=== PATIENT | female | born 1965 | race Caucasian/White ===

== ENCOUNTER → 2016-12-28 | Outpatient (CLI) | payer MEDICARE, OTHER ==
--- NOTE | 2016-12-28 16:06 | XR ---
EXAMINATION TYPE: XR KUB DATE OF EXAM ORDERED: 12/28/2016 2:19 PM HISTORY: Left-sided nephrolithiasis. COMPARISON: None. FINDINGS: There has been a previous cholecystectomy. The abdominal gas pattern is normal. No definit e renal calculi are seen. There are multiple phleboliths within the pelvis. IMPRESSION: NO ACUTE INTRA-ABDOMINAL ABNORMALITY.
== END | disposition home or self-care (01) ==
LOC: RADXRMAIN 14:06
PROVIDERS: ATTEND Urology
DX: N20.0 Calculus of kidney (principal)
CPT/HCPCS: 74000

== ENCOUNTER 2017-04-09 16:56 | Observation (INO) | payer MEDICARE, OTHER ==
--- NOTE | 2017-04-09 17:27 | ED ---
General Adult HPI - General Chief complaint: Urogenital Stated complaint: Poss Kidney Stone Source: patient, EMS, RN notes reviewed, old records reviewed Mode of arrival: EMS Limitations: no limitations - History of Present Illness Initial comments: Chief complaint and history of present illness a 52-year-old female sent in our emergency room from [facility] emergency room. The patient had lithotripsy and dilatation yesterday by Dr. Hu. Today she went to the emergency room at [facility] because of increased pain. While there urinalysis showed greater than 100 RBCs 1 WBC. The patient's labs SHOW white count 21.3 with a hemoglobin 14 hematocrit of 45 and 80% neutrophils. CT performed at that facility was interpreted by the radiologist as compared to one prior and his interpretation is there is swelling and possible subcapsular hematoma as well as peripheral stranding. His impression is possible pyelonephritis. The patient was given IV Levaquin at [facility]. - Related Data Home Medications Medication Instructions Recorded Confirmed HYDROcodone/APAP 7.5-325MG [[place] [address] 1 tab PO BID PRN 04/09/17 04/09/17 7.5-325] Ranitidine HCl [Zantac] 150 mg PO BID 04/09/17 04/09/17 Sertraline HCl [Zoloft] 150 mg PO HS 04/09/17 04/09/17 clonazePAM [KlonoPIN] 0.5 mg PO HS 04/09/17 04/09/17 traZODone HCL [Trazodone HCl] 150 mg PO HS 04/09/17 04/09/17 Allergies Allergy/AdvReac Type Severity Reaction Status Date / Time ciprofloxacin [From Cipro] Allergy Swelling Verified 04/09/17 17:33 cortisone Allergy Swelling Verified 04/09/17 17:33 ketorolac [From Toradol] Allergy Rash/Hives Verified 04/09/17 17:33 Review of Systems ROS Statement: Those systems with pertinent positive or pertinent negative responses have been documented in the HPI. Review of systems patient denies headache or visual acuity changes she has left flank pain radiates around to the right. Some nausea vomiting earlier and she is given medications to stop. Decreased appetite. No peripheral neurological problems. No chest pain or shortness of breath. All systems reviewed past medical problems significant for multiple kidney stones since last April. Surgeries bilateral carpal tunnel repair. Cholecystectomy tonsillectomy. Family history father had CHF. Patient has ALLERGIES to Toradol and Cipro. She reports Cipro cause tendon rupture. Patient does smoke strongly encouraged to stop, denies alcohol use ROS Other: All systems not noted in ROS Statement are negative. Past Medical History Additional Past Medical History / Comment(s): colitis, kidney stones, hiatal hernia History of Any Multi-Drug Resistant Organisms: None Reported Past Surgical History: Cholecystectomy, Tonsillectomy Additional Past Surgical History / Comment(s): carpal tunnel, lithotripsy Past Psychological History: Anxiety, Depression Smoking Status: Current every day smoker Past Alcohol Use History: None Reported Past Drug Use History: None Reported General Exam - General Exam Comments Initial Comments: General: The patient is awake and alert, transferred from [facility] for evaluation by urology. Patient had laser lithotripsy yesterday with dilatation of the left ureter. Temp 98.5 pulse 81 respiratory rate 18 pulse ox on percent room air blood pressure 110/69 Eye: extra-ocular movements are intact; there is normal conjunctiva bilaterally. No signs of icterus. Ears, nose, mouth and throat: There are moist mucous membranes Neck: The neck is supple, there is no tenderness Cardiovascular: There is a regular rate and rhythm. No murmur, rub or gallop is appreciated. Respiratory: Lungs are clear to auscultation, respirations are non-labored, breath sounds are equal. No wheezes, stridor, rales, or rhonchi. Gastrointestinal: Soft, non-distended, non-tender abdomen without masses or organomegaly noted. There is no rebound or guarding present. No CVA tenderness. Bowel sounds are unremarkable. Back: Left flank pain radiates to the left lower quadrant. Musculoskeletal: Normal ROM, no tenderness, There is no pedal edema. There is no calf tenderness or swelling. Sensation intact. Neurological: No complaint of any neuro deficits. Skin: Skin is warm and dry and no rashes or lesions are noted. Limitations: no limitations Course Vital Signs 04/09/17 17:01 Temperature 98.5 F Pulse Rate 81 Respiratory 18 Rate Blood Pressure 110/69 O2 Sat by Pulse 100 Oximetry Medical Decision Making - Medical Decision Making Medical decision-making. The patient's labs at [facility] showed white count 21.3 hemoglobin 14 hematocrit of 45 urine showed 100 reds 1 white, plasma lactic acid within normal limits. The patient's potassium is 4.2 BUN 13 creatinine 0.9 the GFR 69. SGOT and SGPT both elevated. The other hospital because of intractable pain. Despite the fact she was taken hydrocodone with Tylenol. The case is discussed with Dr. Taylor, on-call for Dr. Ceja. Patient willbe admitted to his service and observation , for pain management post surgery. Disposition Clinical Impression: Renal colic on left side, Pyelonephritis Disposition: ADMITTED IP TO THIS HOSP Condition: Fair Referrals: Bobby Kent MD [Primary Care Provider] - 1-2 days
[2017-04-09] MEDS ORDERED: NALOXONE 0.4 MG/ML 1 ML VIAL IV PRN (17:37)
[2017-04-09] MEDS ORDERED: ONDANSETRON 4 MG/2 ML VIAL IVP PRN (17:37)
[2017-04-09] MEDS: SODIUM CHLORIDE 0.9% 1,000 ML IV SCH (18:46)
[2017-04-09] MEDS: HYDROmorphone 1 MG/ML 1 ML SYRINGE IV PRN (18:51)
[2017-04-09 18:57] VITALS: BMI 32.8
[2017-04-09] MEDS: LACTOBACILLUS ACIDOPH & BULGAR 1 EACH PACKET PO SCH (20:35)
[2017-04-09] MEDS: clonazePAM 0.5 MG TAB PO SCH (20:35)
[2017-04-09] MEDS: SERTRALINE 100 MG TAB PO SCH (20:35)
[2017-04-09] MEDS: traZODone HCL 100 MG TAB PO SCH (20:35)
[2017-04-10] MEDS: HYDROmorphone 1 MG/ML 1 ML SYRINGE IV PRN ×4 (03:59→20:21)
[2017-04-10] MEDS: SODIUM CHLORIDE 0.9% 1,000 ML IV SCH ×2 (06:16→19:26)
--- NOTE | 2017-04-10 06:27 | P.GSHP ---
History of Present Illness H&P Date: 04/09/17 Chief Complaint: Left flank pain The patient is a 52-year-old white female with a history of urolithiasis. She underwent bilateral ureteroscopy by Dr. Mcconnell yesterday. He did fragment a 2 mm left renal calculus, but it turned out that her renal calcifications were primarily Juanito's plaques. Ureteral stents were left in place, and she presented to [facility] today with left-sided abdominal and suprapubic pain, associated with hematuria. She was subsequently transferred to [facility] and admitted. - Constitutional Constitutional: Denies fever - Cardiovascular Cardiovascular: Denies chest pain - Respiratory Respiratory: Denies dyspnea - Gastrointestinal Gastrointestinal: Reports abdominal pain, Reports nausea - Genitourinary (Female) Genitourinary: Reports hematuria Past Medical History Additional Past Medical History / Comment(s): colitis, kidney stones, hiatal hernia History of Any Multi-Drug Resistant Organisms: None Reported Past Surgical History: Cholecystectomy, Tonsillectomy Additional Past Surgical History / Comment(s): carpal tunnel, lithotripsy, CDIFF 2006, gastritis Past Psychological History: Anxiety, Depression Smoking Status: Current every day smoker Past Alcohol Use History: None Reported Past Drug Use History: None Reported Additional Drug Use History / Comment(s): DECLINES NICOTINE PATCH, SAYS IT MAKES HER SICK Medications and Allergies Home Medications Medication Instructions Recorded Confirmed Type Cephalexin [Keflex] 500 mg PO TID 04/09/17 04/09/17 History HYDROcodone/APAP 7.5-325MG [[place] 1 tab PO BID PRN 04/09/17 04/09/17 History 7.5-325] L.acidoph,Paracasei, B.lactis 1 cap PO HS 04/09/17 04/09/17 History [Probiotic] Ranitidine HCl [Zantac] 150 mg PO BID 04/09/17 04/09/17 History Sertraline HCl [Zoloft] 150 mg PO HS 04/09/17 04/09/17 History clonazePAM [KlonoPIN] 0.5 mg PO HS 04/09/17 04/09/17 History traZODone HCL [Trazodone HCl] 150 mg PO HS 04/09/17 04/09/17 History Allergies Allergy/AdvReac Type Severity Reaction Status Date / Time ciprofloxacin [From Cipro] Allergy Swelling Verified 04/09/17 17:33 cortisone Allergy Swelling Verified 04/09/17 17:33 ketorolac [From Toradol] Allergy Rash/Hives Verified 04/09/17 17:33 Surgical - Exam Vital Signs Temp Pulse Resp BP Pulse Ox 98.5 F 81 18 110/69 100 04/09/17 17:01 04/09/17 17:01 04/09/17 17:01 04/09/17 17:01 04/09/17 17:01 - General well developed, well nourished, moderate pain - Respiratory normal respiratory effort - Abdomen Abdomen: soft, tender (LUQ and suprapubic tenderness), no masses, no guarding, no rebound, no distended - Psychiatric oriented to time, oriented to person, oriented to place, speech is normal, memory intact Results - Imaging CT scan - abdomen: image reviewed Assessment and Plan (1) Renal colic on left side Status: Acute Plan: The patient is a 52-year-old white female, one day status post bilateral ureteroscopy with ureteral stent insertion. Her primary complaints are left sided abdominal pain and hematuria. Laboratory results from [facility] obtained earlier today showed a WBC count of 21,390. The serum creatinine level was 0.9. Urinalysis showed negative nitrate, 1+ leukocyte esterase, 1-3 WBC, greater than 100 RBC. A computed tomography scan showed evidence of left hydronephrosis with left perinephric stranding. The right ureteral stent was well-positioned, but the proximal coil of the left ureteral stent appeared to be located just distal to the left UPJ. A small rim of fluid appears to surround the upper pole of the left kidney. She is currently admitted and receiving IV hydration and parenteral analgesics. Her WBC count will be repeated tomorrow. The stents are to be removed early next week, and I have suggested that she be discharged home on oral analgesics once comfortable. The left ureteral stent is not ideally positioned, but replacement of the stent would require a second procedure which may be unwarranted.
[2017-04-10] MEDS ORDERED: PANTOPRAZOLE 40 MG/10 ML VIAL IV SCH (09:00)
[2017-04-10] MEDS ORDERED: cefTRIAXone 1,000 MG in SODIUM CHLORIDE 0.9% 100 ML IVPB SCH (09:00)
[2017-04-10 11:05] LABS: Basophils % (A) 0 %; CH 28.8; CHCM 32.3; Eosinophils # (A) 0.1 k/uL (0-0.7); Eosinophils % (A) 1 %; HCT 39.5 % (34.0-46.0); HDW 2.36; HGB 12.6 gm/dL (11.4-16.0); Luc # (Auto) 0.12; Luc % (Auto) 1; Lymphocytes # (A) 1.3 k/uL (1.0-4.8); Lymphocytes % (A) 14 %; MCH 28.6 pg (25.0-35.0); MCV 89.4 fL (80.0-100.0); Mean Platelet Volume 7.2; Monocytes # (A) 0.7 k/uL (0-1.0); Monocytes % (A) 7 %; Neutrophils # (A) 7.7 k/uL (1.3-7.7); Neutrophils % (A) 77 %; RBC 4.42 m/uL (3.80-5.40); RDW 12.6 % (11.5-15.5); WBC (Perox) 10.65
[2017-04-10] MEDS: LACTOBACILLUS ACIDOPH & BULGAR 1 EACH PACKET PO SCH (21:03)
[2017-04-10] MEDS: SERTRALINE 100 MG TAB PO SCH (21:03)
[2017-04-10] MEDS: clonazePAM 0.5 MG TAB PO SCH (21:04)
[2017-04-10] MEDS: traZODone HCL 100 MG TAB PO SCH (21:04)
[2017-04-11] MEDS: HYDROmorphone 1 MG/ML 1 ML SYRINGE IV PRN ×2 (03:20→10:44)
[2017-04-11] MEDS: SODIUM CHLORIDE 0.9% 1,000 ML IV SCH (06:49)
[2017-04-11] MEDS ORDERED: PANTOPRAZOLE 40 MG TABLET PO ONE (08:00)
[2017-04-11 08:11] VITALS: BP 123/66; PULSE 74; RESP 17; TEMP 98.5
[2017-04-11] MEDS ORDERED: PANTOPRAZOLE 40 MG TABLET PO SCH (09:00)
[2017-04-11] MEDS ORDERED: ENOXAPARIN 40 MG/0.4 ML SYRINGE SQ SCH (09:00)
[2017-04-11 10:07] LABS: CH 28.4; CHCM 32.4; HCT 37.7 % (34.0-46.0); HDW 2.41; HGB 12.7 gm/dL (11.4-16.0); MCH 29.6 pg (25.0-35.0); MCHC 33.6 g/dL (31.0-37.0); MCV 87.9 fL (80.0-100.0); RBC 4.28 m/uL (3.80-5.40); RDW 12.5 % (11.5-15.5); WBC 7.8 k/uL (3.8-10.6)
[2017-04-11 10:15] LABS: Anion Gap 7 mmol/L; Blood Urea Nitrogen 16 mg/dL (7-17); Calcium 8.4 mg/dL (8.4-10.2); Carbon Dioxide 25 mmol/L (22-30); Chloride 109 mmol/L (98-107); Glucose 139 mg/dL (74-99); Non-African American GFR(MDRD) >60 (>60 ml/min/1.73 sqM); Potassium 3.5 mmol/L (3.5-5.1); Sodium 141 mmol/L (137-145)
--- NOTE | 2017-04-11 11:23 | P.PN ---
Subjective The patient is in the hospital with pain. The patient was seen yesterday and again this morning. She had bilateral ureteroscopy and laser lithotripsy to a tiny stone in her left kidney on Saturday. She came in the hospital with severe pain. Her CAT scan was basically unremarkable other than a little fluid around the kidney which is normal. Per the nursing staff she is not requiring much medicine but she states to me that she is in severe pain. The patient is a chronic pain medicine is on a contract for narcotics. At this point in time urologically I do not have a major cause for her pain. I prefer to leave the stents until next week just because of the swelling. I did offer to remove the stents tomorrow but I thought it would make more sense to leave until Saturday and she concurs. I will discharge her home and follow-up in the office on Saturday for stent removal. I will not write any pain medicine that she does have [place] at home. Her white count dropped to 10,000 yesterday. Her vital signs are stable. Objective - Vital Signs Vital signs: Vital Signs Temp 98.5 F 04/11/17 07:00 Pulse 74 04/11/17 07:00 Resp 17 04/11/17 07:00 BP 123/66 04/11/17 07:00 Pulse Ox 93 L 04/11/17 07:00 Intake & Output 04/10/17 04/11/17 04/11/17 18:59 06:59 18:59 Weight 83.915 kg Other: Voiding Method Toilet Toilet Toilet # Voids 1 2 # Bowel Movements 0 - Labs CBC & Chem 7: 04/11/17 09:47 04/11/17 09:47 Labs: Abnormal Lab Results - Last 24 Hours (Table) 04/11/17 Range/Units 09:47 Chloride 109 H (98-107) mmol/L Glucose 139 H (74-99) mg/dL
--- NOTE | 2017-04-11 11:29 | P.DS ---
Providers Date of admission: 04/09/17 17:37 Attending physician: Gurdeep Lindsey Primary care physician: Bobby Kent [facility] Course: The patient underwent a ureteroscopy to assess for back pain and kidney stones. She had a tiny renal stone on the left that was lasered. The b ilateral stents were placed. The patient has chronic pain had intolerable pain. Postoperatively. She was admitted to the hospital. She apparently had a high white count in [place] however her white count yesterday was 10,000 and today is 7.8 thousand. She is still having pain which I think is chronic and probably not urologic. I prefer the stents to stay until next week. I explained to the patient that she may have to seek other causes for her pain. I explained to the patient since she is on chronic pain medication I cannot prescribe her pain medicine as she has a contract. I explained to the patient because she has chronic pain that her pain threshold is probably quite low. I offered to refer her to a another kidney specialist in a [facility]. We'll see how she does after the stents are removed. Patient Condition at Discharge: Stable Plan - Discharge Summary Discharge Medication List Cephalexin [Keflex] 500 mg PO TID 04/09/17 [History] HYDROcodone/APAP 7.5-325MG [[place] 7.5-325] 1 tab PO BID PRN 04/09/17 [History] L.acidoph,Paracasei, B.lactis [Probiotic] 1 cap PO HS 04/09/17 [History] Ranitidine HCl [Zantac] 150 mg PO BID 04/09/17 [History] Sertraline HCl [Zoloft] 150 mg PO HS 04/09/17 [History] clonazePAM [KlonoPIN] 0.5 mg PO HS 04/09/17 [History] traZODone HCL [Trazodone HCl] 150 mg PO HS 04/09/17 [History] Follow up Appointment(s)/Referral(s): Bobby Kent MD [Primary Care Provider] - 1-2 days Rishabh Mcconnell MD [STAFF PHYSICIAN] - 04/17/17 Activity/Diet/Wound Care/Special Instructions: The patient has pain medication at home and she has on a contract for her [place]. She should be set up for cystoscopy and stent removal on Saturday. Should contact us at any time with fever chills or pain that is not controlled.
== END 2017-04-11 14:22 | disposition home or self-care (01) ==
LOC: EC 16:56 → 4MS4W 17:37
PROVIDERS: ADMIT Urology; ATTEND Urology
DX: N13.2 Hydronephrosis with renal and ureteral calculous obstruction (principal); G89.29 Other chronic pain; F41.9 Anxiety disorder, unspecified; F32.9 Major depressive disorder, single episode, unspecified; K44.9 Diaphragmatic hernia without obstruction or gangrene; F17.200 Nicotine dependence, unspecified, uncomplicated; Z98.890 Other specified postprocedural states; Z79.899 Other long term (current) drug therapy; Z88.3 Allergy status to other anti-infective agents; Z87.442 Personal history of urinary calculi; Z88.5 Allergy status to narcotic agent; Z88.8 Allergy status to other drugs, medicaments and biological substances; Z87.19 Personal history of other diseases of the digestive system
CPT/HCPCS: 96376 ×2; 96361 ×2; 96365; 96366; 96375 ×2; 99284; 80048; 85025; 85027; G0378 ×3; J0696 ×3; J1170 ×3; C9113